=== PATIENT | male | born 1995 | race Caucasian/White ===

== ENCOUNTER 2020-05-12 17:14 | Emergency (ER) | payer OTHER ==
[2020-05-12 17:26] VITALS: BP 150/90; PULSE 86; RESP 16; TEMP 98.9
[2020-05-12] MEDS ORDERED: ERYTHROMYCIN 5 MG/GM OPHTH OINT 1 GM TUBE BOTH EYES STA (17:29)
[2020-05-12] MEDS ORDERED: FLUORESCEIN STRIPS 1 MG STRIP RIGHT EYE STA (17:30)
[2020-05-12] MEDS ORDERED: PROPARACAINE 0.5% OPHTH DROPS 15 ML BTL BOTH EYES STA (17:30)
[2020-05-12] MEDS ORDERED: DIPH,PERTUS(ACELL)TETVAC-LF 0.5 ML VIAL IM ONE (17:46)
--- NOTE | 2020-05-12 18:20 | ED ---
General Adult HPI - General Chief complaint: Eye Problems Stated complaint: rust in eye Time Seen by Provider: 05/12/20 17:29 Source: patient, RN notes reviewed Mode of arrival: ambulatory Limitations: no limitations - History of Present Illness Initial comments: 24-year-old male presents to the emergency room for a chief complaint of foreign body in the right eye. 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 He reports that last night he had some irritation in the right eye. He noticed today that it was worse. He went to urgent care and they found a foreign body in the right eye. The temperature removed this and were able to get a piece of it however believe a rust ring remains. Patient states it is very irritated. Patient does report blurry vision in the R eye but denies visual changes otherwise. He does not wear contacts. He is not up-to-date on tetanus.Patient has no other complaints at this time including shortness of breath, chest pain, abdominal pain, nausea or vomiting, headache, or visual changes. - Related Data Previous Rx's Medication Instructions Recorded Artificial Tears-Hypromellose 1 drops RIGHT EYE TID #15 ml 05/12/20 [Artificial Tear Drops] Erythromycin Ophth Oint [Romycin 1 applic RIGHT EYE QID 7 Days #10 05/12/20 Ophth Oint] gram Allergies Allergy/AdvReac Type Severity Reaction Status Date / Time No Known Allergies Allergy Verified 05/12/20 17:26 Review of Systems ROS Statement: Those systems with pertinent positive or pertinent negative responses have been documented in the HPI. ROS Other: All systems not noted in ROS Statement are negative. Past Medical History Past Medical History: No Reported History History of Any Multi-Drug Resistant Organisms: None Reported Past Surgical History: No Surgical Hx Reported Past Psychological History: No Psychological Hx Reported Smoking Status: Never smoker Past Alcohol Use History: Occasional Past Drug Use History: None Reported General Exam Limitations: no limitations General appearance: alert, in no apparent distress Head exam: Present: atraumatic, normocephalic, normal inspection Eye exam: Present: normal appearance, PERRL, EOMI, other (The eye was stained with fluorescein stain, negative Agnieszka sign. No other foreign bodies or uptake.). Absent: scleral icterus, conjunctival injection (small foreign body vs rust ring, favor rust ring, @ 6:00 in R eye), periorbital swelling Expanded Eyelids: Normal Inspection: Bilateral Pupils: Regular, Round: Bilateral Sclera/Conjunctival: Injection: Left Visual acuity (R) = 20/: 40 Visual acuity (L) = 20/: 25 With correction: No ENT exam: Present: normal exam, mucous membranes moist Neck exam: Present: normal inspection, full ROM. Absent: tenderness, meningismus, lymphadenopathy Respiratory exam: Present: normal lung sounds bilaterally. Absent: respiratory distress, wheezes, rales, rhonchi, stridor Cardiovascular Exam: Present: regular rate, normal rhythm, normal heart sounds. Absent: bradycardia, tachycardia, irregular rhythm GI/Abdominal exam: Present: soft, normal bowel sounds. Absent: distended, tenderness, guarding, rebound, rigid Course Vital Signs 05/12/20 17:24 Temperature 98.9 F Pulse Rate 86 Respiratory 16 Rate Blood Pressure 150/90 O2 Sat by Pulse 100 Oximetry Medical Decision Making - Medical Decision Making Patient does have a small foreign body or rust ring noted in the right eye at about 6:00. I did numb his eye with proparacaine and he had complete resolution of symptoms at that time. Patient reports that part of foreign body was already removed at urgent care with a cotton swab. I did try an IV catheter was not able to remove this. I then used the Grady brush on the area and got some of the rust ring however could not get all of it. Patient reports urgent care had establish an appointment with him at 1:30 at [facility]. I did call and confirm that they could see him then and they can do so. They also do manage rust rings. Patient was updated on tetanus. I also touch base with Dr. Helton who can see him on Friday if patient does not have resolution of symptoms. He is aware to return here if he has any worsening symptoms Disposition Clinical Impression: Corneal rust ring of right eye, Corneal foreign body Disposition: HOME SELF-CARE Condition: Good Additional Instructions: Please apply antibiotic ointment as directed. Do not apply artificial tears for at least 15 minutes before or after antibiotic applied. Please follow-up at your scheduled appointment tomorrow at 1:30 at [facility]. If you are still having any difficulty please follow-up with Dr. Helton on Friday. You were given his phone number. If you have any worsening symptoms should return to the emergency room. Prescriptions: Artificial Tears-Hypromellose [Artificial Tear Drops] 1 drops RIGHT EYE TID #15 ml Erythromycin Ophth Oint [Romycin Ophth Oint] 1 applic RIGHT EYE QID 7 Days #10 gram Is patient prescribed a controlled substance at d/c from ED?: No Referrals: Jorge Helton MD [STAFF PHYSICIAN] - 1-2 days Time of Disposition: 18:42
== END 2020-05-12 19:09 | disposition home or self-care (01) ==
LOC: EC 17:14
DX: T15.01XA Foreign body in cornea, right eye, initial encounter (principal); Z23 Encounter for immunization; X58.XXXA Exposure to other specified factors, initial encounter
CPT/HCPCS: 90471; 90715; 99283

== ENCOUNTER → 2024-06-18 | Outpatient (CLI) | payer OTHER ==
--- NOTE | 2024-06-18 15:01 | MR ---
EXAMINATION TYPE: MR thoracic spine wo con DATE OF EXAM: 06/18/2024 1:28 PM COMPARISON: None. CLINICAL INDICATION: Male, 28 years old with history of M54.6 thoracic spine pain, COMPRESSION FRACTU RE T11 - PT FELL AT WORK ON 05/11/24/ NO PREV ON PACS TECHNIQUE: Multiplanar, multiecho imaging on a 3.0 Natty magnet is performed through the thoracic spi ne. IV Contrast: mL (None, if empty) FINDINGS: Spinal cord maintains normal signal through its visualized course. Vertebral body alignment is normal. Vertebral body heights are preserved. No signal abnormality within the vertebral bodies is evident. N o acute compression deformities identified. Disc heights are preserved. There are multiple small Schmorl's node formations throughout the mid and lower thoracic spine. Disc hydration levels are preserved. No focal disc herniations or significant disc bulges are evident. No cord contact or spinal canal roger nosis. IMPRESSION: 1. No suspicious acute changes [facility], , 06/18/2024 2:59 PM
== END | disposition home or self-care (01) ==
LOC: RADMRIMAIN 12:44
PROVIDERS: ATTEND Orthopaedic Surgery
DX: M54.6 Pain in thoracic spine (principal)
CPT/HCPCS: 72146